=== PATIENT | male | born 1995 | race Caucasian/White ===

== ENCOUNTER 2021-09-25 18:32 | Emergency (ER) | payer OTHER ==
[~2021-09-25] VITALS: Ht 188 cm; Wt 98.9 kg
[2021-09-25 18:36] VITALS: BP 145/94
--- NOTE | 2021-09-25 18:55 | NUR ---
PT AMBULATED TO BED #8.
[2021-09-25] MEDS ORDERED: DICYCLOMINE HCL LIQUID 20 MG, ALUMINUM HYD/MAG/SIMETHICONE 30 ML, LIDOCAINE VISCOUS 2% ... PO ONE ×3 (19:20)
[2021-09-25] MEDS ORDERED: MAG-27 PO (19:41)
[2021-09-25] MEDS ORDERED: DOCU-299 PO (19:41)
[2021-09-25] MEDS ORDERED: CALC-870 PO (19:41)
[2021-09-25] MEDS ORDERED: ALUMINUM HYD/MAG/SIMETHICONE 30 ML UDC ONE (19:42)
[2021-09-25] MEDS ORDERED: DICYCLOMINE HCL LIQUID 10 MG/5 ML UDC ONE (19:42)
--- NOTE | 2021-09-25 19:45 | NUR ---
26 Y/O MALE BIB SELF FOR GERD AND VOMITING. PT STATES HES BEEN COUGHING UP BLOOD X1 DAY AND THAT WAS THE REASON FOR COMING IN. PT WENT TO URGENT CARE 1 MONTH AGO AND THEY PRESCRIBED OMEPRAZOLE. PT HAS BEEN TAKING IT BUT SOME DAYS IS WORSE AND HE HAS BEEN VOMITING. PT HAS BEEN HAVING HEADACHES X1 MONTH WELL. PT DENIES F/N BUT HAD COVID 2 WEEKS AGO. PT HAS BEEN CONSTIPATED X3 DAYS. PT HAS VOMITED A COUPLE TIMES TODAY. PT RATES PAIN 2/10
[2021-09-25 20:06] VITALS: BP 145/94
--- NOTE | 2021-09-25 20:06 | NUR ---
Patient discharged with v/s stable. Written and verbal after care instructions given and explained. Patient alert, oriented and verbalized understanding of instructions. Ambulatory with steady gait. All questions addressed prior to discharge. ID band removed. Patient advised to follow up with PMD. Rx of MAALOX ADVANCED, COLACE, [place] given. Opportunity to ask questions provided and answered.
--- NOTE | 2021-09-25 20:29 | NUR ---
The patient's care was reviewed and supervised by Katherine Kramer RN.
== END 2021-09-25 20:06 | disposition home or self-care (01) ==
LOC: MED 18:32
DX: K21.9 Gastro-esophageal reflux disease without esophagitis (principal); Z79.899 Other long term (current) drug therapy
CPT/HCPCS: 81002; 99282

== ENCOUNTER 2022-03-15 02:37 | Emergency (ER) | payer OTHER ==
[~2022-03-15] VITALS: Ht 188 cm; Wt 99.8 kg
[~2022-03-15 02:37] MED LIST: CALC-870 PO; DOCU-299 PO; MAG-27 PO
[2022-03-15 02:50] VITALS: BP 133/89
--- NOTE | 2022-03-15 02:54 | NUR ---
TO BED AMBULATORY
--- NOTE | 2022-03-15 03:00 | NUR ---
DR. FRYE AT BEDSIDE FOR EXAM
[2022-03-15] MEDS ORDERED: KETOROLAC 60 MG/2 ML VIAL IM ONE (03:20)
--- NOTE | 2022-03-15 04:00 | NUR ---
PT RESTING. NO S/S OF DISTRESS NOTED AT THIS TIME. AWAITING DC ORDERS. PT DENIES ANY NEEDS AT THIS TIME AND REPORTS IMPROVEMENT IN PAIN.
[2022-03-15] MEDS ORDERED: IBUP-2213 PO (04:10)
[2022-03-15] MEDS ORDERED: CEPH-588 PO (04:10)
[2022-03-15 04:28] VITALS: BP 128/78
--- NOTE | 2022-03-15 04:28 | NUR ---
Patient discharged with v/s stable. Written and verbal after care instructions given and explained. Patient alert, oriented and verbalized understanding of instructions. Ambulatory with steady gait. All questions addressed prior to discharge. ID band removed. Patient advised to follow up with PMD. Rx of KEFLEX, IBUPROFEN given. Patient educated on indication of medication including possible reaction and side effects. Opportunity to ask questions provided and answered.
== END 2022-03-15 04:28 | disposition home or self-care (01) ==
LOC: MED 02:37
DX: L02.91 Cutaneous abscess, unspecified (principal); R19.00 Intra-abdominal and pelvic swelling, mass and lump, unspecified site; K21.9 Gastro-esophageal reflux disease without esophagitis; F12.90 Cannabis use, unspecified, uncomplicated
CPT/HCPCS: 81002; 96372; 99283; J1885